=== PATIENT | female | born 1960 | race Caucasian/White ===

== ENCOUNTER 2024-07-10 15:20 | Outpatient (CLI) | payer SELFPAY | END 2024-07-10 15:21 | disposition home or self-care (01) | PROVIDERS: PCP Chiropractor; Visit Provider Chiropractor | DX: M51.34 Other intervertebral disc degeneration, thoracic region (principal); M16.12 Unilateral primary osteoarthritis, left hip; M51.360 Other intervertebral disc degeneration, lumbar region with discogenic back pain only; M50.30 Other cervical disc degeneration, unspecified cervical region | CPT/HCPCS: 72040; 72070; 72100; 72170 ==